=== PATIENT | female | born 1970 | race Caucasian/White ===

== ENCOUNTER 2019-08-17 07:44 | Inpatient (IN) ==
--- NOTE | 2019-08-17 08:45 | Diag Imaging Result Doc PS360 ---
EXAM: FOOT 2 VIEWS RIGHT INDICATION: Osteomyelitis RIGHT CALCANEUS TECHNIQUE: 2 views COMPARISON: None. FINDINGS: There has been amputation of the third toe distal to the MTP joint. There are erosive changes around the proximal IP joint of the fifth toe that may be chronic. Please correlate clinically. There is soft tissue edema and likely ulceration overlying the calcaneus. No definite no definite focal calcaneal erosion is identified to indicate osteomyelitis by plain radiograph on the current study. There is no other discrete fracture, dislocation, or significant intrinsic osseous lesion. IMPRESSION: 1.Soft tissue edema and likely ulceration overlying the calcaneus indicating cellulitis. However, no definite sign of calcaneal osteomyelitis is identified by plain radiograph. 2.Erosive changes at the proximal IP joint of the fifth toe that could be chronic. Please correlate clinically. Electronically signed by Konrad Diaz 08/17/2019 8:43 AM
[2019-08-17 08:51] LABS: HEMATOCRIT 41.2 % (37.0-47.0); MCH 28.4 PG (27-31); MCHC 31.6 g/dL (33-37); MPV 11.6 FL (7.4-10.4); RBC 4.58 XMIL (4.2-5.4); RDW 13.4 % (11.5-14.5); WBC 10.29 X1000 (4.8-10.8)
[2019-08-17 09:04] LABS: CALCIUM 9.3 mg/dL (8.8-10.2); POTASSIUM 4.8 mmol/L (3.5-5.1)
[2019-08-17 09:11] LABS: HEMOGLOBIN A1C 7.1 % (4.8-6.0)
[2019-08-17] MEDS ORDERED: VANCOMYCIN IV PER PHARMACY MISC SCH (09:15)
[2019-08-17] MEDS: VANCOMYCIN 2 GM in NS 500 ML IV SCH (10:50)
[2019-08-17] MEDS ORDERED: NS 500 ML ONE (10:55)
--- NOTE | 2019-08-17 12:04 | INFECTIOUS DISEASE CONSULT REP ---
DATE: 08/17/2019 CONCLUSION: The patient has a right foot cellulitis and may have osteomyelitis as well. RECOMMENDATIONS: I agree with starting the patient on vancomycin. To this, I have added cefepime, and I have obtained a culture from the patient's right foot. Some of the side effects of the antibiotics, including rash, diarrhea, renal toxicity, and ototoxicity have been explained to the patient, who agrees with treatment. I have also ordered wound dressing changes to consist of cleaning the patient's right foot wounds with Vashe, and then applying a Zurdo to the wounds every 12 hours. I also ordered a MRI of the right foot. DISCUSSION: The patient, in the past month, has had erythema and swelling of the right foot. She has been followed by Dr. Johnson. The patient said Dr. Johnson took a culture from her foot, but I have been unable to find the culture. PROCEDURAL NURSE HISTORY: The patient is a 1, para 0, AB 1. She has had a uterine ablation and a tubal ligation. REVIEW OF SYSTEMS: Eyes and Ears: Her vision and hearing are good. Neck: No stiffness. Respiratory: No cough or shortness of breath. Cardiac: No chest pain or palpitations. GI: No nausea, vomiting, or diarrhea. : No dysuria or flank pain. Bones/Joints/Muscles: See present illness. Neurologic: No seizures. No loss of motor or sensory function. PREVIOUS HOSPITALIZATIONS AND OPERATIONS: The patient has had a miscarriage, a tubal ligation, uterine ablation, appendectomy, and cholecystectomy. Recently, she was in [facility] and was given antibiotics through the vein for 4 days and then sent home. MEDICAL DISEASES: Positive for obesity, diabetes mellitus, hypertension, and hyperlipidemia. INFECTIOUS DISEASE HISTORY: Positive for pneumonia and UTI. FAMILY HISTORY: Positive for diabetes mellitus, hypertension, myocardial infarction, and cancer. [place]IAL HISTORY[place] to be . She lives alone. She has dogs for pets. ALLERGIES: Her chart lists no known drug allergies. HOME MEDICATIONS: Norvasc, Lipitor, Celexa, Neurontin, Amaryl, Prinivil, Glucophage, Lopressor, and spironolactone. SOCIAL HISTORY: The patient does not smoke cigarettes, drink alcoholic beverages, or abuse drugs. She does not have a job now. She, in the past, has done private duty work with people. PHYSICAL EXAMINATION: Vital Signs: The only vital signs back yet are the patient's weight, which is 258 pounds. General: This is an obese, middle-aged female. She is in no acute distress. HEENT: She is edentulous. She can hear my spoken words and see near objects. There is no drainage from her nose or ears. Neck: No stiffness. Lungs: Clear to auscultation. Cardiovascular: Regular heart rate. Abdomen: Soft and nontender. Neurologic: The patient is awake. She can move her extremities. There is no tremor. She has decreased sensation in both of her feet. There is no tremor. She does not have any motor function loss. Integument: No rash. Bones/Joints/Muscles: The patient's right heel and ankle area are erythematous. There is a plantar ulcer on the heel, and there is a medial ulcer on the ankle. Neurologic: The patient is alert. She can move her extremities. There is no tremor. She has decreased sensation to touch in her feet. Her memory as regarding her medical history is intact. Integument: No rash. Thank you for the consult. cc: MD Kathy Yates MD [facility]
--- NOTE | 2019-08-17 13:25 | Diag Imaging Result Doc PS360 ---
MRI LOWER EXT W/WO CON-RIGHT - 08/17/2019 INDICATION: R heel and ankle osteomyelitis TECHNIQUE: MRI right ankle without and with intravenous contrast COMPARISON: X-rays from earlier 08/17/2019 FINDINGS: At the medial aspect of the posterior-mid calcaneus, there is a skin ulcer with a sinus tract extending down to the calcaneus. This is best appreciated on the postcontrast axial views. There is intense bone marrow edema and contrast enhancement of the majority of the calcaneus. This indicates severe osteomyelitis. There is degenerative spurring at the plantar fascial origin and the Achilles tendon insertion. Throughout the Achilles tendon diffusely, there is thickening and severe hyperintense signal centrally compatible with tendinopathy and partial tendon tearing. The other tendons of the ankle are normal. There is some degenerative appearing bone marrow edema of the cuboid but this is not continuous with the inflammatory process of the calcaneus. IMPRESSION: 1. Severe osteomyelitis of the calcaneus. There is a medial hindfoot skin ulcer with a sinus tract extending to the bone. 2. Severe tendinopathy of the Achilles tendon with partial internal tearing. 3. There is some degenerative bone marrow edema mainly of the cuboid. Electronically signed by Raymond Grady 08/17/2019 1:23 PM
[2019-08-17] MEDS: NEURONTIN PO SCH ×3 (14:07→17:47)
[2019-08-17] MEDS: NORVASC PO SCH ×2 (14:07→20:59)
[2019-08-17] MEDS: LOPRESSOR PO SCH ×2 (14:07→20:59)
[2019-08-17] MEDS: GLUCOPHAGE PO SCH ×2 (14:07→17:47)
[2019-08-17] MEDS: PRINIVIL PO SCH ×2 (14:07→21:00)
[2019-08-17] MEDS: AMARYL PO SCH (14:08)
[2019-08-17] MEDS: ALDACTONE PO SCH ×3 (14:08→17:47)
[2019-08-17] MEDS: CELEXA PO SCH (14:08)
[2019-08-17] MEDS: MAXIPIME 2 GM in NS 100 ML IV SCH (17:47)
--- NOTE | 2019-08-17 18:21 | HISTORY AND PHYSICAL ---
HISTORY OF PRESENT ILLNESS: Ms Stephany Pandya is a 48-year-old, white female diabetic who was recently hospitalized at [facility] with a chronic ulcer on the plantar aspect of her right heel and also ulcer involving her right ankle that I think goes to the calcaneus bone. She was having pain and having trouble walking on it and there is some surrounding cellulitis. I saw her in our offices yesterday and felt she had to be admitted for ongoing diabetic infection of her right foot with possible osteomyelitis. She appears to have good flow to her feet bilaterally. She lives alone but she has family that lives close to her. PHYSICAL EXAMINATION: GENERAL: On exam, Ms. Stephany Pandya is an overweight, middle-aged white female no acute distress. HEENT: No jaundice. No oral lesions. Satisfactory dentition. NECK: No cervical or supraclavicular lymphadenopathy. HEART: Regular rate. LUNGS: Clear to auscultation and percussion bilaterally. ABDOMEN: Soft, nontender, without palpable mass. No costovertebral tenderness. RECTAL: Rectal exam was not performed. VASCULAR: She does have palpable femoral pulses. She has hair involving both lower extremities. SKIN: She has a chronic ulcer, plantar aspect, right heel with some granulation tissue and surrounding callus. She also has an open wound more proximally involving the ankle medially that seems to go to the calcaneus. NEUROLOGIC: She had no focal deficits. IMPRESSION: Diabetic foot wound and recent hospitalization at [facility]. Possible right foot osteomyelitis. PLAN: She will be admitted, receive IV vancomycin. Get plain films of her foot. I will get Aaron Alfaro our Infectious Disease doctor to check on her and see what options we have. cc: Kathy Johnson MD
[2019-08-17] MEDS: LIPITOR PO SCH (21:00)
[2019-08-17] MEDS: NORCO-10 PO PRN (21:04)
[2019-08-18] MEDS: MAXIPIME 2 GM in NS 100 ML IV SCH (05:17)
[2019-08-18] MEDS: GLUCOPHAGE PO SCH ×2 (09:00→17:54)
[2019-08-18] MEDS: LOPRESSOR PO SCH ×2 (09:01→20:34)
[2019-08-18] MEDS: NEURONTIN PO SCH ×3 (09:01→17:54)
[2019-08-18] MEDS: CELEXA PO SCH (09:01)
[2019-08-18] MEDS: NORVASC PO SCH ×2 (09:01→20:33)
[2019-08-18] MEDS: AMARYL PO SCH (09:01)
[2019-08-18] MEDS: ALDACTONE PO SCH ×3 (09:01→17:54)
[2019-08-18] MEDS: PRINIVIL PO SCH ×2 (09:02→20:34)
[2019-08-18] MEDS: VANCOMYCIN 2 GM in NS 500 ML IV SCH (10:07)
[2019-08-18] MEDS ORDERED: NS 250 ML ONE (14:28)
[2019-08-18 14:38] LABS: INR 1.14; PROTIME 14.8 Seconds (11.0-16.0)
--- NOTE | 2019-08-18 14:47 | INFECTIOUS DISEASE PROGRESS NO ---
DATE: 08/18/2019 PRESENT ILLNESS: The patient has cellulitis of the right foot along with osteomyelitis of the right heel. Culture from the patient's foot is growing gram-positive cocci. MEDICATIONS: The patient is on vancomycin. PHYSICAL EXAMINATION: Vital Signs: Temperature is 98.4 degrees, pulse 57, respirations 18, blood pressure 140/74. General: This is an obese, middle-aged female. She is in no acute distress. Head/eyes/ears/nose/throat: She can hear my spoken words and see near objects. There is no drainage from her nose or ears. Neck: No pain with movement. Lungs: Clear to auscultation. Cardiovascular: Regular heart rate. Abdomen: Soft and nontender. Neurologic: The patient is alert. She can move her extremities. There is no tremor. The patient does have decreased sensation in both of her feet. Bones, Joints, Muscles: The right heel and ankle are erythematous. There is a plantar ulcer on the heel and medial ulcer on the ankle. LAB AND X-RAY: The patient's x-ray of the foot showed heel cellulitis negative. MRI of the right foot showed calcaneus osteomyelitis. ASSESSMENT AND PLAN: For now I am going to continue vancomycin for the patient's infected foot and discontinue cefepime. COMORBIDITIES: The patient is obese. She has diabetes mellitus, hypertension, and hyperlipidemia. cc: MD Kathy Yates MD
--- NOTE | 2019-08-18 16:10 | PROGRESS NOTE ---
DATE: 08/18/2019 SUBJECTIVE: This is hospital day 2 for Ms. Pandya, admitted with an infected diabetic right foot that has evidence of osteomyelitis of the calcaneus. She has a chronic ulcer involving the bottom of her right heel. She also has an open wound higher up, close to the ankle that goes to the calcaneus. She has some surrounding cellulitis. Cultures suggest MRSA and she is on IV vancomycin. She is getting a PICC line placed today, I hope in preparation for long-term home antibiotics. Her sugars have been satisfactory. She is tolerating a diet and otherwise seems to be doing well clinically. OBJECTIVE: Vital signs: Her heart rate is 57, blood pressure 140/74, O2 saturation 99%. She is afebrile. LABORATORY: Her sugars of ranged from 123 to 224. ASSESSMENT AND PLAN: I think we will add Lovenox for safety. She has been placed back on all of her home medications and the antibiotics Maxipime has been stopped by Dr. Alfaro because of the culture results. cc: Kathy Johnson MD
[2019-08-18] MEDS: NORCO-10 PO PRN (18:36)
[2019-08-18] MEDS: LOVENOX SUBQ SCH (20:33)
[2019-08-18] MEDS: LIPITOR PO SCH (20:34)
[2019-08-19] MEDS: VANCOMYCIN 2 GM in NS 500 ML IV SCH (10:44)
[2019-08-19] MEDS: GLUCOPHAGE PO SCH ×2 (10:45→17:33)
[2019-08-19] MEDS: NORVASC PO SCH ×2 (10:45→20:20)
[2019-08-19] MEDS: NEURONTIN PO SCH ×3 (10:45→20:20)
[2019-08-19] MEDS: LOPRESSOR PO SCH ×2 (10:45→10:47)
[2019-08-19] MEDS: CELEXA PO SCH (10:45)
[2019-08-19] MEDS: AMARYL PO SCH (10:45)
[2019-08-19] MEDS: ALDACTONE PO SCH ×3 (10:46→20:20)
[2019-08-19] MEDS: PRINIVIL PO SCH ×2 (10:46→20:20)
[2019-08-19] MEDS ORDERED: ALDACTONE PO SCH (12:25)
[2019-08-19] MEDS: KEFZOL 2 GM/D5W 2 GM/50 ML IVPB IV SCH ×2 (12:27→20:19)
[2019-08-19] MEDS: LOVENOX SUBQ SCH (20:20)
[2019-08-19] MEDS: LIPITOR PO SCH (20:20)
[2019-08-20] MEDS: LOPRESSOR PO SCH ×2 (03:36→08:33)
[2019-08-20] MEDS: KEFZOL 2 GM/D5W 2 GM/50 ML IVPB IV SCH ×2 (04:11→15:19)
[2019-08-20] MEDS: GLUCOPHAGE PO SCH (08:33)
[2019-08-20] MEDS: AMARYL PO SCH (08:33)
[2019-08-20] MEDS: NEURONTIN PO SCH ×2 (08:33→15:21)
[2019-08-20] MEDS: CELEXA PO SCH (08:34)
[2019-08-20] MEDS: NORVASC PO SCH (08:34)
[2019-08-20] MEDS: ALDACTONE PO SCH ×2 (08:34→15:19)
[2019-08-20] MEDS: PRINIVIL PO SCH (08:34)
[2019-08-20 11:22] VITALS: BP 123/76
--- NOTE | 2019-08-20 12:08 | PROGRESS NOTE ---
DATE: 08/20/2019 SUBJECTIVE: Ms. Stephany Pandya has been hospitalized and this is hospital day 4 with cellulitis involving her right foot. She has got a chronic ulcer involving the bottom of her heel. She got MRI evidence of osteomyelitis of the calcaneus. She has been admitted and been seen by Dr. Alfaro. She has a PICC line in place right upper extremity and she will need long-term home antibiotics. Cultures suggest that Ancef may be adequate and she will be dosed 3 times a day. We are trying to get that arranged through social services manager and when that gets range she can be discharged as long as the plan is clear for her at home. Otherwise she stays in the hospital to get treatment until this is arranged. We will continue IV antibiotics and wound care. cc: Kathy Johnson MD
--- NOTE | 2019-08-20 13:27 | INFECTIOUS DISEASE PROGRESS NO ---
DATE: 08/20/2019 PRESENT ILLNESS: The patient has an oxacillin sensitive Staphylococcus aureus and group B streptococcal cellulitis and osteomyelitis of the right foot. MEDICATIONS: The patient is on Ancef 2 g IV every 8 hours. PHYSICAL EXAMINATION: Vital Signs: Temperature is 97.7 degrees, pulse 71, respirations 16, blood pressure 119/74. General: This is an obese, middle-aged female. She is in no acute distress. Head/eyes/ears/nose/throat: She can hear my spoken words and see near objects. She does not have any white coating on her tongue. Neck: No pain with movement. Lungs: Clear to auscultation. Cardiovascular: Regular heart rate. Abdomen: Soft, nontender. Extremities: The patient has a large dressing around the right foot and ankle. The dressing is intact. The patient has a PICC in her right arm. The site is not erythematous or purulent. Neurologic: The patient is alert. She ambulates without difficulty. There is no tremor. LAB AND X-RAY: There is no new radiographic study today. The only lab study is a creatinine which is 0.8. ASSESSMENT AND PLAN: The patient was switched from vancomycin to Ancef 2 g IV every 8 hours. I have put in a request for the patient to have home IV antibiotics for a total of 40 days. Some of the side effects of Ancef including rash and diarrhea have been explained to the patient who agrees with treatment. My plan is for the patient to come to my office in 20 days from now and 40 days from now. At the last time that she comes the plan will be to stop her IV antibiotics and remove her PICC. COMORBIDITIES: The patient is obese. She does have diabetes mellitus, hypertension, and hyperlipidemia. cc: MD Kathy Yates MD
[2019-08-20] MEDS: NORCO-10 PO PRN (15:21)
[2019-08-20] MEDS ORDERED: FLU VACCINE IM ONE (15:24)
== END 2019-08-20 17:46 | disposition home or self-care (01) | DRG 638 ==
LOC: DIRADM 07:44 → 4N 07:52
PROVIDERS: ADMIT Surgery; ATTEND Surgery

== ENCOUNTER 2019-10-05 15:00 | Inpatient (IN) ==
[2019-10-05] MEDS ORDERED: SODIUM CHLORIDE 0.9% INJ PRN (16:20)
[2019-10-05] MEDS ORDERED: NS 1,000 ML ONE (16:26)
[2019-10-05] MEDS: NS 1,000 ML IV SCH (16:30)
[2019-10-05 16:45] LABS: HEMATOCRIT 36.8 % (37.0-47.0); HEMOGLOBIN 11.8 g/dL (12.0-16.0); HEMOGLOBIN A1C 7.7 % (4.8-6.0); MCH 28.4 PG (27-31); MCHC 32.1 g/dL (33-37); MCV 88.7 FL (81-99); MPV 12.1 FL (7.4-10.4); RBC 4.15 XMIL (4.2-5.4); RDW 13.3 % (11.5-14.5); WBC 22.48 X1000 (4.8-10.8)
[2019-10-05] MEDS ORDERED: KEFZOL 1 GM/D5W 1 GM/50 ML IVPB IV SCH (17:00)
[2019-10-05 17:49] LABS: CALCIUM 9.1 mg/dL (8.8-10.2); POTASSIUM 4.2 mmol/L (3.5-5.1)
[2019-10-05] MEDS: ZOSYN 3.375 GM in NS 50 ML IV SCH (18:20)
[2019-10-05] MEDS ORDERED: HUMALOG SUBQ SCH (21:00)
[2019-10-05] MEDS: COLACE PO SCH (22:05)
[2019-10-05] MEDS: PRINIVIL PO SCH (22:05)
[2019-10-05] MEDS: LOPRESSOR PO SCH (22:05)
[2019-10-05] MEDS: NORVASC PO SCH (22:05)
[2019-10-05] MEDS: MORPHINE IV PRN (22:06)
[2019-10-05] MEDS: HUMULIN R SUBQ SCH (22:07)
--- NOTE | 2019-10-05 22:11 | HISTORY AND PHYSICAL ---
INDICATIONS: Ms Stephany Pandya is a 48-year-old white female diabetic patient of Dr. Cooper who has had ongoing infection involving her right heel. She was admitted in July 2019 and underwent an evaluation for a right diabetic foot which included a right foot x-ray and lower extremity MRI. The MRI performed on 08/17/2019 suggested severe osteomyelitis of the right calcaneus and also sinus tract extending to the bone. I discussed treatment options with her. We also got Dr. Aaron Alfaro involved, Infectious Disease, and we decided in July on long-term IV antibiotics in hopes to clear her osteomyelitis. She has been seen regularly in Dr. Alfaro and my offices. Recently her PICC line was removed and her IV antibiotics stopped. She presented to our office today with obvious ongoing infection of the right heel and she was admitted to the hospital for further care. PAST MEDICAL HISTORY: Insulin-dependent diabetes mellitus, obesity, hypertension, hyperlipidemia. MEDICATIONS: Norvasc, Lipitor, Celexa, Neurontin, Amaryl, Prinivil, Glucophage, Lopressor and spironolactone. ALLERGIES: No known drug allergies. SOCIAL HISTORY: She lives by herself but her mother lives beside her as does some other family that lives close to her. She lives in [facility]. She is not working now. 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 FAMILY HISTORY: Positive for diabetes, hypertension, myocardial infarction and cancer. REVIEW OF SYSTEMS: A 14-point review of systems was performed and was essentially negative except for the infection involving her right heel. On exam, Ms. Pandya is in no acute distress. She is a middle-aged white female. She is in a wheelchair because it hurts for her to walk on this heel. HEENT: No jaundice. No oral lesions. Satisfactory dentition. No cervical or supraclavicular lymphadenopathy. Her heart has a regular rate. Lungs were clear to auscultation and percussion bilaterally. She has no obvious breast mass. Her abdomen was soft, nontender, without palpable mass. No costovertebral tenderness. Rectal and vaginal exams were not performed. She does have palpable femoral pulses bilaterally. I could feel pedal pulses. She has open wounds involving the medial and lateral aspect of her right heel. She has some swelling and obvious infection involving her right foot at the heel. Her left lower extremity is without evidence of infection. Neurologically, she has no focal deficits. LABORATORY: Her white blood cell count is 22. Her hemoglobin A1c is 7.7. Her hematocrit is 37%. IMPRESSION: Osteomyelitis of the right heel despite recent surgical debridement and long-term intravenous antibiotics. PLAN: She will be admitted, receive IV antibiotics and she will probably require a [id number] amputation. I have discussed this with her in our outpatient offices prior to her admission. I will have Dr. Aaron Alfaro see her to help with any discussion of her osteomyelitis and also its treatment. cc: Kathy Johnson MD
[2019-10-06] MEDS: ZOSYN 3.375 GM in NS 50 ML IV SCH ×5 (00:08→18:00)
[2019-10-06] MEDS: MORPHINE IV PRN ×3 (00:14→22:16)
[2019-10-06] MEDS: NS 1,000 ML IV SCH (06:38)
[2019-10-06] MEDS: HUMULIN R SUBQ SCH ×4 (06:40→20:35)
[2019-10-06] MEDS: GLUCOPHAGE PO SCH ×2 (07:48→16:42)
[2019-10-06] MEDS: PHENERGAN IV PRN (07:57)
[2019-10-06] MEDS ORDERED: GLUCOPHAGE PO SCH (08:00)
[2019-10-06] MEDS: ALDACTONE PO SCH ×3 (10:44→16:42)
[2019-10-06] MEDS: NORVASC PO SCH ×2 (10:45→20:35)
[2019-10-06] MEDS: AMARYL PO SCH (10:45)
[2019-10-06] MEDS: LOPRESSOR PO SCH ×2 (10:45→20:35)
[2019-10-06] MEDS: NEURONTIN PO SCH ×3 (10:45→16:42)
[2019-10-06] MEDS: PRINIVIL PO SCH ×2 (10:45→20:35)
[2019-10-06] MEDS: CELEXA PO SCH (10:46)
[2019-10-06] MEDS: COLACE PO SCH ×2 (10:46→20:35)
[2019-10-06] MEDS: LIPITOR PO SCH (10:46)
--- NOTE | 2019-10-06 13:58 | INFECTIOUS DISEASE PROGRESS NO ---
DATE: 10/06/2019 PRESENT ILLNESS: The patient has a very severe infection of her right foot. It involves the right heel. There is necrotic tissue present and also there is involvement of the calcaneus which means that the patient has osteomyelitis of the heel. MEDICATIONS: The patient is on Zosyn. Some of the side effects of the antibiotic including rash and diarrhea have been explained to the patient who agrees with treatment. PHYSICAL EXAMINATION: Vital Signs: Temperature is 98.3 degrees, pulse 73, respirations 18, blood pressure 117/67. Patient weighs 255 pounds. General: This is an obese, middle-aged female. She is in no acute distress. Head/eyes/ears/nose/throat: She can hear my spoken words and see near objects. She does have some whitish greenish patches on her tongue, but her tongue is not sore. Neck: No meningismus. Lungs: Clear to auscultation. Cardiovascular: Heart rate is regular. Abdomen: Soft and nontender. Extremities: I removed the dressing from the patient's right heel. It has a foul odor. There is a plantar ulcer and a lateral ulcer on the heel. The lateral one has necrotic tissue in it and it extends down to bone. The lateral ulcer is black and has a seropurulent fluid that has a foul odor. Neurologic: Patient is alert. She can move her extremities. There is no tremor. She is coherent correction. She is alert and talks in a coherent fashion. LAB AND X-RAY: [place] [id number], hemoglobin 11.8, platelet count 280,000. Creatinine is 1.0 GFR is 59. Glucose is 488. ASSESSMENT AND PLAN: The patient has osteomyelitis and gangrene of the right heel. I agree with placing the patient on Zosyn. I also agree with the need for the patient to have a qopfw-kec-teeb amputation of the right leg. I obtained a culture from the patient's right heel. COMORBIDITIES: The patient is a diabetic. She is obese. She has hypertension and hyperlipidemia. She previously has had debridement of the right heel, but it never did heal up. cc: MD Kathy Yates MD
[2019-10-06 18:27] LABS: URINE SOURCE CATH
[2019-10-06 18:30] LABS: BILIRUBIN URINE NEGATIVE (NEGATIVE); BLOOD URINE SMALL (NEGATIVE); COLOR YELLOW; GLUCOSE URINE 150 mg/dL (NEGATIVE); KETONE URINE 10 mg/dL (NEGATIVE); LEUKOCYTES URINE NEGATIVE (NEGATIVE); NITRITE URINE NEGATIVE (NEGATIVE); PH URINE 5.5; PROTEIN URINE 30 mg/dL (NEGATIVE); SP GRAVITY URINE 1.029; TURBIDITY URINE CLEAR (CLEAR); UR EPITHELIAL CELLS <10 /HPF (<10); URINE BACTERIA NEGATIVE /HPF; URINE RBC <10 /HPF (<10); URINE WBC <10 /HPF (<10); UROBILINOGEN URINE NORMAL (NORMAL)
[2019-10-06] MEDS ORDERED: MORPHINE IV PRN (19:58)
[2019-10-06] MEDS: DIFLUCAN PO SCH (20:43)
--- NOTE | 2019-10-06 22:54 | OPERATIVE NOTE ---
PROCEDURE DATE: 10/06/2019 PREOPERATIVE DIAGNOSIS: Osteomyelitis, right heel. POSTOPERATIVE DIAGNOSIS: Osteomyelitis, right heel. PRINCIPAL PROCEDURE: Right ipbqz-qxu-sehs amputation. SURGEON: Kathy Johnson MD. ANESTHESIA: General. ESTIMATED BLOOD LOSS: 250 mL. DRAINS: None. INDICATIONS: Ms. Stephany Pandya is a 48-year-old, white female diabetic, a patient of Dr. Frannie Cooper, who has developed osteomyelitis of her right heel. We tried to treated it initially with surgical debridement and long-term IV antibiotics which she has completed. On the day of admission, yesterday, I saw her in our outpatient offices and she had ongoing infection of the heel. It was felt she needed to be admitted for amputation. FINDINGS: We felt that she had sufficient blood supply for wound healing below the knee. DESCRIPTION OF PROCEDURE: The patient was brought to the operating room, placed supine, received general anesthesia, and was intubated. A Cisneros catheter tube was placed. It was felt that she might have a yeast infection along her perineum probably from ongoing IV antibiotics. We prepped and draped her right lower extremity. We were careful about prepping and draping. She was already on IV antibiotics. We draped the heel out of our operative field by using dressings to cover it. I marked my incision. I measured the circumference of the leg, 2/3 of that circumference was my transverse incision 10 cm below the tibial tuberosity and then 1/3 of that circumference was my posterior flap. I lyric the incision before making my incision with a 10 blade scalpel. Then I used cautery to transect through the soft tissue and muscles. As I came across the blood vessels I ligated them between hemostats and I used 2-0 and 0 silk ties. I transected the tibia with an oscillating saw. I made sure that I transected the fibula laterally more proximal than the tibia cut and I did that with a bone cutter. I used a rasp to smooth out the cut end of the tibia. I used an amputation knife and a bone hook once these bones were divided to create my a posterior flap. Bleeding was controlled again using Columba clamps, and I used a suture ligatures to control any arterial bleeding. I thoroughly irrigated out the wound. I brought the posterior flap up over the wound to our anterior incision. I used interrupted 0 Vicryl stitches between the fascia to bring the posterior flap up to our anterior incision. These sutures were tied and then I closed the skin with a skin clip longwall machine operator helper. Xeroform was applied followed by flushed fluff dressing, Kerlix wraps, 4-inch Vishnu and I used a posterior splint. We left the Cisneros catheter tube in place. She will go to the recovery room and then be readmitted to the floor. cc: Kathy Johnson MD
[2019-10-07] MEDS: MORPHINE IV PRN ×5 (01:17→20:31)
[2019-10-07] MEDS: LR 1,000 ML IV SCH ×2 (01:51→20:38)
[2019-10-07] MEDS: ZOSYN 3.375 GM in NS 50 ML IV SCH ×2 (01:51→08:05)
[2019-10-07] MEDS: HUMULIN R SUBQ SCH ×4 (06:32→20:59)
[2019-10-07] MEDS: AMARYL PO SCH (08:03)
[2019-10-07] MEDS: CELEXA PO SCH (08:04)
[2019-10-07] MEDS: LOPRESSOR PO SCH ×2 (08:04→20:39)
[2019-10-07] MEDS: GLUCOPHAGE PO SCH ×2 (08:04→17:05)
[2019-10-07] MEDS: COLACE PO SCH ×2 (08:04→20:39)
[2019-10-07] MEDS: NEURONTIN PO SCH ×3 (08:04→20:31)
[2019-10-07] MEDS: LIPITOR PO SCH (08:04)
[2019-10-07] MEDS: NORVASC PO SCH (08:04)
[2019-10-07] MEDS: ALDACTONE PO SCH ×3 (08:04→20:39)
[2019-10-07] MEDS: PRINIVIL PO SCH (08:04)
--- NOTE | 2019-10-07 11:07 | PROGRESS NOTE ---
DATE: 10/07/2019 SUBJECTIVE: Ms. Stephany Pandya is a 48-year-old, white female with diabetes. She had developed osteomyelitis of her right heel, and yesterday I performed a right hpehf-wvs-qecf amputation. She is uninsured and will need help after discharge. Our social service director has seen her. She has a Cisneros catheter tube in place. When placing that Cisneros catheter tube, we felt she had a yeast infection and so I have placed her on Diflucan. We will leave her Cisneros in today for convenience. She has a posterior splint. Will leave her dressing intact. We have asked Physical Therapy to start working with her. She is on a diabetic diet. Her heart rate is 61, blood pressure 128/72, O2 saturation 98%. She is afebrile. We do have her on IV Zosyn and will be able to stop that soon because of her surgery. Her glucose is still high; it has been 200 to 261. She is on an insulin sliding scale. cc: Kathy Johnson MD
[2019-10-07] MEDS: KEFZOL 2 GM in NS 50 ML IV SCH ×3 (15:35→22:13)
[2019-10-07] MEDS: DIFLUCAN PO SCH (20:39)
[2019-10-08] MEDS: MORPHINE IV PRN ×4 (03:36→19:43)
[2019-10-08] MEDS: PRINIVIL PO SCH ×4 (03:59→20:07)
[2019-10-08] MEDS: NORVASC PO SCH ×4 (03:59→20:07)
[2019-10-08] MEDS: KEFZOL 2 GM in NS 50 ML IV SCH (06:19)
[2019-10-08] MEDS: HUMULIN R SUBQ SCH ×4 (06:19→20:52)
[2019-10-08 06:57] LABS: BASO# 0.04 X1000 (0.0-0.2); BASO% 0.3 % (0.0-0.8); EOS# 0.14 X1000 (0.0-0.7); EOS% 1.2 % (0.0-10.0); HEMATOCRIT 32.6 % (37.0-47.0); IMM GRAN% 0.8 % (0.0-0.5); LYMPH# 2.65 X1000 (1.2-3.4); LYMPH% 22.3 % (20.5-51.1); MCH 27.9 PG (27-31); MCHC 30.7 g/dL (33-37); MCV 90.8 FL (81-99); MONO# 0.93 X1000 (0.11-0.59); MONO% 7.8 % (1.7-9.3); MPV 12.1 FL (7.4-10.4); NEUT# 8.01 X1000 (1.4-6.5); NEUT% 67.6 % (42.2-75.2); PLT 290 X1000 (130-400); RBC 3.59 XMIL (4.2-5.4); RDW 13.9 % (11.5-14.5); WBC 11.87 X1000 (4.8-10.8)
[2019-10-08 07:48] LABS: AGAP 12; BUN 9 mg/dL (8-22); CALCIUM 8.5 mg/dL (8.8-10.2); CHLORIDE 99 mmol/L (98-107); COSMO 284; CREATININE 0.6 mg/dL (0.5-0.9); ESTIMATED GFR > 60; GLUCOSE 235 mg/dL (70-104); POTASSIUM 4.2 mmol/L (3.5-5.1); SODIUM 139 mmol/L (136-145); TCO2 28 mmol/L (25-35)
[2019-10-08] MEDS: LR 1,000 ML IV SCH (09:17)
[2019-10-08] MEDS: COLACE PO SCH ×3 (09:18→20:07)
[2019-10-08] MEDS: ALDACTONE PO SCH ×4 (09:19→20:06)
[2019-10-08] MEDS: NEURONTIN PO SCH ×4 (09:19→20:07)
[2019-10-08] MEDS: CELEXA PO SCH (09:19)
[2019-10-08] MEDS: LIPITOR PO SCH (09:19)
[2019-10-08] MEDS: GLUCOPHAGE PO SCH ×2 (09:19→16:12)
[2019-10-08] MEDS: LOPRESSOR PO SCH ×3 (09:19→20:07)
[2019-10-08] MEDS: AMARYL PO SCH (09:19)
[2019-10-08] MEDS: AUGMENTIN PO SCH ×3 (17:06→20:08)
--- NOTE | 2019-10-08 19:11 | PROGRESS NOTE ---
DATE: 10/08/2019 SUBJECTIVE/OBJECTIVE: Ms. Stephany Pandya is now postoperative day 2, from a right below-the- knee amputation for osteomyelitis of right heel. She still has a posterior splint in place. Her dressing is intact. Her pain is controlled. Physical therapy is seeing the patient. ASSESSMENT/PLAN: We are going to stop her IV antibiotics. We will stop her IV fluids. She is tolerating the diet well. We will plan to take down her dressing Friday and she needs to continue working with physical therapy, become more active. cc: Kathy Johnson MD
[2019-10-08] MEDS: DIFLUCAN PO SCH ×2 (19:55→20:07)
--- NOTE | 2019-10-09 00:14 | INFECTIOUS DISEASE PROGRESS NO ---
DATE: 10/08/2019 PRESENT ILLNESS: The patient is status post right cysmh-whr-mbgj amputation of her right foot. Culture from the foot grew Enterococcus. MEDICATIONS: The patient had been on Ancef and today I started her on Augmentin. Some of the side effects of the antibiotic including rash and diarrhea have been explained to the patient, who agrees with treatment. I plan on giving her 4 days of Augmentin and then the medicine will be stopped. OBJECTIVE: Vital signs: Temperature is 99.1 degrees, pulse 67, respirations 18, blood pressure 115/68. Generally this is an obese, middle-aged female. She is in no acute distress. Head, eyes, ears, nose and throat: She can hear my spoken words and see near objects. She does not have any white coating on her tongue. Neck: No pain with movement. Lungs clear to auscultation.Cardiovascular: Regular heart rate. Abdomen soft and nontender. Extremities: The patient has a right mzksc-zym-lyib amputation. There is a large dressing and splint. They are intact. Neurologic: The patient is alert. She can move her extremities. There is no tremor. LAB AND RADIOLOGY: CBC-11.87, hgb 10, platelets 290K. Creatinine-0.6. GFR->60. No new radiographic study for today. ASSESSMENT AND PLAN: 1. The patient is status post right ajrzd-fau-czjt amputation. The culture from the foot grew enterococcus. I have put the patient on Augmentin for 4 days and then it will be stopped automatically. 2. Comorbidities: The patient is obese, she is a diabetic, and she has hypertension and hyperlipidemia. cc: MD Kathy Yates MD [facility]
[2019-10-09] MEDS: MORPHINE IV PRN ×3 (01:48→16:26)
[2019-10-09] MEDS: HUMULIN R SUBQ SCH ×4 (06:27→21:08)
[2019-10-09] MEDS: CELEXA PO SCH (09:15)
[2019-10-09] MEDS: COLACE PO SCH ×2 (09:15→21:07)
[2019-10-09] MEDS: PRINIVIL PO SCH ×2 (09:15→21:07)
[2019-10-09] MEDS: AUGMENTIN PO SCH ×2 (09:15→21:08)
[2019-10-09] MEDS: LIPITOR PO SCH (09:15)
[2019-10-09] MEDS: ALDACTONE PO SCH ×3 (09:15→21:06)
[2019-10-09] MEDS: LOPRESSOR PO SCH ×2 (09:16→21:09)
[2019-10-09] MEDS: NORVASC PO SCH ×2 (09:16→21:06)
[2019-10-09] MEDS: GLUCOPHAGE PO SCH ×2 (09:16→16:27)
[2019-10-09] MEDS: AMARYL PO SCH (09:16)
[2019-10-09] MEDS: NEURONTIN PO SCH ×3 (09:16→21:07)
[2019-10-10] MEDS: MORPHINE IV PRN ×4 (01:36→20:32)
--- NOTE | 2019-10-10 03:16 | GENERAL SURGERY PROGRESS NOTE ---
DATE: 10/09/2019 SUBJECTIVE: The patient is without any complaints. OBJECTIVE: She is afebrile. Vital signs are stable.General: She is awake, alert, oriented x3. No acute distress. Extremities: The right BKA dressing is clean and dry. ASSESSMENT AND PLAN: A 40-year-old female status post right below-knee amputation. She is working with physical therapy and Dr. Johnson will reassess the wound on Friday. She does not have insurance for rehab placement, so we are keeping her for extra therapy. cc: MD Kathy Prieto MD
[2019-10-10] MEDS: HUMULIN R SUBQ SCH ×4 (06:50→21:00)
[2019-10-10] MEDS: NEURONTIN PO SCH ×3 (09:39→20:32)
[2019-10-10] MEDS: PRINIVIL PO SCH ×2 (09:39→20:32)
[2019-10-10] MEDS: ALDACTONE PO SCH ×3 (09:39→20:32)
[2019-10-10] MEDS: AMARYL PO SCH (09:39)
[2019-10-10] MEDS: NORVASC PO SCH ×2 (09:39→20:32)
[2019-10-10] MEDS: GLUCOPHAGE PO SCH ×2 (09:39→17:33)
[2019-10-10] MEDS: CELEXA PO SCH (09:40)
[2019-10-10] MEDS: LIPITOR PO SCH (09:40)
[2019-10-10] MEDS: COLACE PO SCH ×2 (09:40→20:32)
[2019-10-10] MEDS: AUGMENTIN PO SCH ×2 (09:40→20:32)
[2019-10-10] MEDS: LOPRESSOR PO SCH ×2 (09:40→20:32)
--- NOTE | 2019-10-10 15:09 | GENERAL SURGERY PROGRESS NOTE ---
DATE: 10/10/2019 SUBJECTIVE: The patient has no new complaints or problems overnight. OBJECTIVE: Vital signs: She is afebrile. Vital signs are stable. General: She is awake, alert, oriented x3. No acute distress. Extremities: The right BKA wound dressing is clean and dry. ASSESSMENT AND PLAN: A 40-year-old female status post right BKA. Dr. Johnson will evaluate the wound tomorrow. She continues with physical therapy. cc: MD Kathy Prieto MD
[2019-10-11] MEDS: HUMULIN R SUBQ SCH ×4 (06:59→21:17)
[2019-10-11] MEDS: GLUCOPHAGE PO SCH ×2 (08:25→16:58)
[2019-10-11] MEDS: ALDACTONE PO SCH ×3 (10:24→20:56)
[2019-10-11] MEDS: AUGMENTIN PO SCH (10:25)
[2019-10-11] MEDS: PRINIVIL PO SCH ×2 (10:25→20:56)
[2019-10-11] MEDS: CELEXA PO SCH (10:25)
[2019-10-11] MEDS: AMARYL PO SCH (10:26)
[2019-10-11] MEDS: NEURONTIN PO SCH ×2 (10:26→15:27)
[2019-10-11] MEDS: NORVASC PO SCH ×2 (10:27→20:56)
[2019-10-11] MEDS: COLACE PO SCH ×2 (10:27→20:55)
[2019-10-11] MEDS: LIPITOR PO SCH (10:27)
[2019-10-11] MEDS: LOPRESSOR PO SCH ×2 (10:28→20:56)
--- NOTE | 2019-10-11 11:17 | PROGRESS NOTE ---
DATE: 10/11/2019 Ms. Stephany Pandya is a 48-year-old, white female, diabetic, who underwent a right below-the- knee amputation on 10/06/2019. She is now postop day 5, because of osteomyelitis involving her right heel. I took her dressing down today and her right nuknb-ole-houy amputation stump is healing nicely. It was redressed. Her Cisneros catheter has been removed. She has been treated for apparent yeast infection of her perineum which seems to have improved on Diflucan. Her sugar is fairly well controlled, 145 to 170. She is working with physical therapy while hospitalized. We are trying to place her where she can get physical therapy for her right jgfth-ckd-ksho amputation so that she can be fitted with a prosthesis and be independent. She lives alone in [facility]. Her mother is attentive. We are working on placement. In the meantime, we will continue wound care and physical therapy while hospitalized. She did have a bowel movement yesterday. We will continue wound care. cc: Kathy Johnson MD
[2019-10-11] MEDS ORDERED: IMODIUM PO ONE (15:08)
[2019-10-11] MEDS: NORCO-10 PO PRN (15:27)
[2019-10-12] MEDS: NORCO-10 PO PRN ×2 (01:16→22:55)
[2019-10-12] MEDS: NEURONTIN PO SCH ×4 (03:17→22:57)
[2019-10-12] MEDS: HUMULIN R SUBQ SCH ×4 (06:56→20:57)
[2019-10-12] MEDS: LIPITOR PO SCH (08:08)
[2019-10-12] MEDS: NORVASC PO SCH ×2 (08:08→22:56)
[2019-10-12] MEDS: ALDACTONE PO SCH ×3 (08:08→22:55)
[2019-10-12] MEDS: CELEXA PO SCH (08:08)
[2019-10-12] MEDS: PRINIVIL PO SCH ×2 (08:09→22:56)
[2019-10-12] MEDS: AMARYL PO SCH (08:09)
[2019-10-12] MEDS: GLUCOPHAGE PO SCH ×2 (08:09→17:37)
[2019-10-12] MEDS: LOPRESSOR PO SCH ×2 (08:09→22:56)
--- NOTE | 2019-10-12 13:26 | PROGRESS NOTE ---
DATE: 10/12/2019 Ms. Stephany Pandya is a 48-year-old white female, status post right kkooi-jbd-aeqc amputation. I feel that the amputation site is healing well. She is working with physical therapy, and we are working on discharge disposition. We stopped her Augmentin yesterday because of diarrhea. She was given 1 dose of Imodium. Her sugar is fairly well controlled on her current medications. She is on a diabetic diet. Her heart rate is 54, blood pressure 126/75, O2 saturation 97%. She is afebrile. She is off any IV pain medicine and she is taking p.o. Parrott as needed. She is also on gabapentin. cc: Kathy Johnson MD
[2019-10-13] MEDS: PHENERGAN IV PRN (06:41)
[2019-10-13] MEDS: HUMULIN R SUBQ SCH ×4 (06:55→20:18)
[2019-10-13] MEDS: LIPITOR PO SCH (08:39)
[2019-10-13] MEDS: ALDACTONE PO SCH ×3 (08:39→21:00)
[2019-10-13] MEDS: AMARYL PO SCH (08:39)
[2019-10-13] MEDS: LOPRESSOR PO SCH ×2 (08:40→21:00)
[2019-10-13] MEDS: GLUCOPHAGE PO SCH ×2 (08:40→16:10)
[2019-10-13] MEDS: NEURONTIN PO SCH ×3 (08:40→21:00)
[2019-10-13] MEDS: CELEXA PO SCH (08:40)
[2019-10-13] MEDS: NORVASC PO SCH ×2 (08:40→21:01)
[2019-10-13] MEDS: PRINIVIL PO SCH ×2 (08:40→21:02)
[2019-10-13] MEDS ORDERED: PHENERGAN PO PRN (15:56)
[2019-10-13] MEDS ORDERED: MOTRIN PO SCH (17:00)
--- NOTE | 2019-10-13 18:51 | PROGRESS NOTE ---
DATE: 10/13/2019 Stephany Pandya is a 48-year-old, white female status post right qpdqi-asq-yjvo amputation. We feel that her amputation stump is healing well. She is getting a ramp built at her home by her hoahaoism family. She already has a wheelchair and a walker and a bedside commode. She plans to go home and get outpatient physical therapy at [facility]. She will need a prosthesis are her wound heals. We are going to wait until her ramp gets build at her home prior to discharge. In the meantime, physical therapy is working with the patient. cc: Kathy Johnson MD
[2019-10-13] MEDS ORDERED: TYLENOL PO SCH (21:00)
[2019-10-13] MEDS: TYLENOL PO SCH (21:00)
[2019-10-14] MEDS: MOTRIN PO SCH ×3 (01:29→16:53)
[2019-10-14] MEDS: TYLENOL PO SCH ×3 (05:20→21:43)
[2019-10-14] MEDS: HUMULIN R SUBQ SCH ×4 (07:12→22:32)
[2019-10-14] MEDS: NEURONTIN PO SCH ×3 (08:57→21:43)
[2019-10-14] MEDS: LOPRESSOR PO SCH ×2 (08:57→22:32)
[2019-10-14] MEDS: PRINIVIL PO SCH ×2 (08:57→22:33)
[2019-10-14] MEDS: NORVASC PO SCH ×2 (08:57→22:33)
[2019-10-14] MEDS: AMARYL PO SCH (08:58)
[2019-10-14] MEDS: ALDACTONE PO SCH ×3 (08:58→21:43)
[2019-10-14] MEDS: GLUCOPHAGE PO SCH ×2 (08:58→16:53)
[2019-10-14] MEDS: LIPITOR PO SCH (08:58)
[2019-10-14] MEDS: CELEXA PO SCH (08:58)
[2019-10-15] MEDS: MOTRIN PO SCH ×2 (01:11→08:12)
[2019-10-15] MEDS: TYLENOL PO SCH (05:28)
[2019-10-15] MEDS: HUMULIN R SUBQ SCH (06:16)
[2019-10-15 07:57] VITALS: BP 142/85
[2019-10-15] MEDS: LOPRESSOR PO SCH (08:13)
[2019-10-15] MEDS: GLUCOPHAGE PO SCH (08:13)
[2019-10-15] MEDS: ALDACTONE PO SCH (08:13)
[2019-10-15] MEDS: AMARYL PO SCH (08:13)
[2019-10-15] MEDS: CELEXA PO SCH (08:13)
[2019-10-15] MEDS: PRINIVIL PO SCH (08:13)
[2019-10-15] MEDS: NORVASC PO SCH (08:13)
[2019-10-15] MEDS: LIPITOR PO SCH (08:14)
[2019-10-15] MEDS: NEURONTIN PO SCH (08:14)
--- NOTE | 2019-10-16 08:17 | DISCHARGE SUMMARY ---
ADMISSION DATE: 10/05/2019 DISCHARGE DATE: 10/15/2019 ADMITTING DIAGNOSIS: Osteomyelitis, right heel. DISCHARGE DIAGNOSIS: Osteomyelitis, right heel. PRINCIPAL PROCEDURE: Right lqasc-rzv-zczh amputation 10/06/2019. DISCHARGE DISABILITIES: Full. DISCHARGE DISPOSITION: She is going to be discharged home under the care of her mother. She will have physical therapy at [facility]. She has asked that we contact [facility] for a prosthetic leg. She will follow up in my outpatient offices in 2 weeks. DISCHARGE MEDICATIONS: She is to return to her home medications. DISCHARGE DIET: Diabetic diet. HOSPITAL COURSE: Ms. Stephany Pandya is a 48-year-old, white female diabetic who had developed an infection involving her right heel including osteomyelitis. We have tried to treat it with long-term antibiotics with the help of Dr. Aaron Alfaro but as soon as the antibiotics were stopped, she got worsening infection involving her right foot and heel. It was felt that she needed a right mmuon-dxy-ojny amputation to clear this infection. She was admitted from my outpatient offices on 10/05/2019. She was given IV antibiotics. The following day, she went to the operating room and underwent a right emntt-pqg-rtrd amputation. We felt she had adequate blood supply for healing. Postoperatively, she had a normal course. Physical Therapy worked with her. We had her on a diabetic diet. Her serum glucoses were satisfactory as she cleared the infection. We did continue IV and then p.o. antibiotics for several days after surgery. She also had a yeast infection which we treated with p.o. Diflucan. She began having diarrhea so her Augmentin was stopped. At discharge, Physical Therapy had worked with the patient. She was learning how to walk with a walker. She was also learning transfers to the bedside commode and wheelchair. PLAN: The plan is to continue physical therapy as an outpatient at [facility]. She will go home initially with her mother, she lives alone. Her confucianism is building her a ramp at her home. She still has clips involving her right below-the knee-amputation which will need to be removed in about 2 weeks. I will notify [facility]. I will write her a prescription for physical therapy. cc: Kathy Johnson MD
== END 2019-10-15 09:19 | disposition home or self-care (01) | DRG 240 ==
LOC: DIRADM 15:00 → 4N 15:32
PROVIDERS: ADMIT Surgery; ATTEND Surgery